=== PATIENT | female | born 1975 | race African-American/Black ===

== ENCOUNTER 2021-06-26 22:29 | Emergency (ER) | payer BC ==
[~2021-06-26] VITALS: Ht 170.2 cm; Wt 81.0 kg
[2021-06-26] MEDS ORDERED: OFLO5DRO4 LEFT EAR (22:47)
[2021-06-26] MEDS ORDERED: IBUP-2029 MT (22:47)
[2021-06-26 23:00] VITALS: BP 126/87
[2021-06-26] MEDS ORDERED: KETOROLAC 60MG/2ML VIAL IM ONE (23:00)
== END 2021-06-26 23:07 | disposition home or self-care (01) ==
LOC: ER 22:29
DX: H72.92 Unspecified perforation of tympanic membrane, left ear (principal); Z98.84 Bariatric surgery status; Z90.710 Acquired absence of both cervix and uterus; Z88.3 Allergy status to other anti-infective agents; Z88.0 Allergy status to penicillin
CPT/HCPCS: 81025; 96372; 99283; J1885

== ENCOUNTER 2023-02-06 02:46 | Emergency (ER) | payer SELFPAY ==
[~2023-02-06] VITALS: Ht 170.2 cm; Wt 73.0 kg
[~2023-02-06 02:46] MED LIST: IBUP-2029 MT; OFLO5DRO4 LEFT EAR
[2023-02-06 02:54] VITALS: BP 121/85; PULSE 85; RESP 16; TEMP 98.7; O2SAT 100
[2023-02-06] MEDS ORDERED: IOHEXOL-300 100 ML BOTTLE ONE (19:27)
== END 2023-02-06 03:26 | disposition left against medical advice (07) ==
LOC: ER 02:46
DX: R11.2 Nausea with vomiting, unspecified (principal); Z53.21 Procedure and treatment not carried out due to patient leaving prior to being seen by health care provider
CPT/HCPCS: 99281; Q9967

== ENCOUNTER 2023-02-06 04:47 | Inpatient (IN) | payer MEDICAID ==
[~2023-02-06] VITALS: Ht 165.1 cm; Wt 89.4 kg
[2023-02-06 05:33] LABS: CLARITY URINE CLEAR (CLEAR); COLOR URINE YELLOW (YELLOW); GLUCOSE URINE NEGATIVE (NEGATIVE); KETONES URINE NEGATIVE (NEGATIVE); LEUKOCYTE ESTERASE URINE NEGATIVE (NEGATIVE); NITRITE URINE NEGATIVE (NEGATIVE); OCCULT BLOOD URINE NEGATIVE (NEGATIVE); PH URINE >=9.0 (4.5-8.0); PROTEIN URINE NEGATIVE (NEGATIVE); SPECIFIC GRAVITY URINE 1.007 (1.005-1.030); UROBILINOGEN URINE 0.2 E.U./dL (0.2-1.0)
[2023-02-06 05:47] LABS: BASOPHILS % 0.6 % (0.0-2.0); EOSINOPHILS % 1.2 % (0.0-5.0); HEMATOCRIT. 35.2 % (36.0-48.0); HEMOGLOBIN. 11.6 g/dL (12.0-16.0); LYMPHOCYTES % 37.5 % (20.0-50.0); MEAN CORPUSCULAR HEMOGLOBIN 29.1 pg (28.0-32.0); MEAN CORPUSCULAR HGB CONC 32.9 g/dL (31.0-37.0); MEAN CORPUSCULAR VOLUME 88.7 fL (81.0-99.0); MEAN PLATELET VOLUME 7.6 fl (7.4-10.4); MONOCYTES % 7.8 % (2.0-8.0); NEUTROPHILS % 52.9 % (40.0-76.0); PLATELET 300 x1000/uL (130-400); RED BLOOD CELL COUNT 3.97 mill/uL (4.2-5.4); RED CELL DISTRIBUTION WIDTH 14.2 % (11.6-14.6); WHITE BLOOD COUNT 5.7 x1000/uL (4.5-11.0)
[2023-02-06 05:49] LABS: CHLORIDE 109 mEq/L (98-107); INDEX HEMOLYSI 1 (1-3); INDEX ICTERIC 1 (1-4); INDEX LIPEMIC 1 (1-3); POTASSIUM 3.2 mEq/L (3.5-5.1); SODIUM 137 mEq/L (136-145)
[2023-02-06 05:58] LABS: ALANINE AMINOTRANSFERASE 40 IU/L (13-61); ALBUMIN 3.3 g/dL (3.4-5.0); ASPARTATE AMINOTRANSFERASE 33 IU/L (15-37); BILIRUBIN TOTAL 0.5 mg/dL (0.1-1.0); CALCIUM 8.6 mg/dL (8.5-10.1); CARBON DIOXIDE 29 mEq/L (21-32); CREATININE 0.7 mg/dL (0.6-1.3); GLUCOSE 87 mg/dL (70-105); UREA NITROGEN BLOOD 7 mg/dL (7-21)
[2023-02-06] MEDS ORDERED: MORPHINE SULFATE 4 MG/ML CPJ (NOT FOR IM USE) IV STA (06:22)
[2023-02-06] MEDS ORDERED: ONDANSETRON HCL 4MG/2ML INJ IV STA (06:22)
[2023-02-06 06:58] LABS: HCG SCREEN NEGATIVE
[2023-02-06] MEDS ORDERED: SODIUM CHLORIDE 0.9% 1,000 ML IV ONE (09:15)
[2023-02-06] MEDS ORDERED: MORPHINE SULFATE 4 MG/ML CPJ (NOT FOR IM USE) IV ONE (09:15)
[2023-02-06] MEDS ORDERED: ACETAMINOPHEN 325MG TABLET PO PRN ×2 (10:30)
[2023-02-06] MEDS ORDERED: IPRATROPIUM/ALBUTEROL 0.5-3(2.5)MG/3ML NEB HHN PRN (10:30)
[2023-02-06] MEDS ORDERED: CLONIDINE 0.1MG TABLET PO PRN (10:30)
[2023-02-06] MEDS ORDERED: MAGNESIUM/ALUMINUM HYDROXIDE/SIMETHICONE 30ML UDC PO PRN (10:30)
[2023-02-06] MEDS ORDERED: GUAIFENESIN 200MG/10ML SUGAR FREE UDC PO PRN (10:30)
[2023-02-06] MEDS ORDERED: ENOXAPARIN 40MG/0.4ML SYR SUBCUT SCH (10:53)
[2023-02-06] MEDS ORDERED: NALOXONE HCL 0.4MG/ML VIAL IV PRN (11:00)
[2023-02-06] MEDS: PANTOPRAZOLE SODIUM 40 MG/VIAL IV SCH (11:12)
[2023-02-06 11:27] LABS: PROTHROMBIN TIME 10.8 sec (9.6-11.0)
[2023-02-06] MEDS ORDERED: MVI, ADULT NO.1 10 ML, FOLIC ACID 1 MG, THIAMINE HCL 100 MG in SODIUM CHLORIDE 0.9% 1,0... IV NR ×4 (11:30)
[2023-02-06] MEDS ORDERED: POTASSIUM CHLORIDE INJ 40 MEQ in DEXT 5% WATER 250 ML IV NR (11:30)
[2023-02-06 11:39] LABS: INDEX HEMOLYSI 1 (1-3); INDEX ICTERIC 1 (1-4); INDEX LIPEMIC 1 (1-3)
[2023-02-06 11:43] LABS: IRON 100 ug/dL (50-175); TOTAL IRON BINDING CAPACITY 234 ug/dL (250-450)
[2023-02-06 11:52] LABS: T4 FREE 1.06 ng/dL (0.76-1.46); THYROID STIMULATING HORMONE 3.2 uIU/mL (0.36-3.74)
[2023-02-06] MEDS ORDERED: DEXT 5%/0.45% NACL 500ML 500 ML IV SCH (12:45)
[2023-02-06] MEDS ORDERED: DIATR MEGLU/DIATRIZOATE SOLN 30ML PO NR (13:15)
[2023-02-06 14:18] LABS: FERRITIN 50 ng/mL (10-291)
[2023-02-06 17:25] LABS: HEMATOCRIT 36.4 % (36.0-48.0)
[2023-02-06 17:30] VITALS: BP 116/82; PULSE 53; RESP 20; TEMP 98.2
[2023-02-06 17:47] LABS: TROPONIN I HIGH SENSITIVITY 27 ng/L (<54)
[2023-02-06] MEDS: ONDANSETRON HCL 4MG/2ML INJ IV PRN ×2 (18:10→22:18)
[2023-02-06 18:56] LABS: INDEX HEMOLYSI 1 (1-3)
[2023-02-06 19:26] LABS: VITAMIN B12 SERUM 611 pg/mL (211-911)
[2023-02-06 19:42] LABS: FOLIC ACID (FOLATE) SERUM > 20.00 ng/mL (>5.38)
[2023-02-06 20:00] VITALS: BP 125/74; PULSE 47; RESP 17; TEMP 97.7
[2023-02-06] MEDS: HYDROCODONE/ACETAMINOPHEN 5/325MG TABLET PO PRN (20:16)
[2023-02-07] VITALS: BP 101/68; PULSE 48; RESP 17; TEMP 98.1
[2023-02-07 01:06] LABS: TROPONIN I HIGH SENSITIVITY 26 ng/L (<54)
[2023-02-07 04:00] VITALS: BP 98/61; PULSE 55; RESP 16; TEMP 96.4
[2023-02-07] MEDS: ONDANSETRON HCL 4MG/2ML INJ IV PRN ×3 (04:53→20:58)
[2023-02-07 07:28] LABS: BASOPHILS % 0.5 % (0.0-2.0); EOSINOPHILS % 1.3 % (0.0-5.0); HEMOGLOBIN. 11.1 g/dL (12.0-16.0); LYMPHOCYTES % 41.5 % (20.0-50.0); MEAN CORPUSCULAR HEMOGLOBIN 30.2 pg (28.0-32.0); MEAN CORPUSCULAR HGB CONC 33.8 g/dL (31.0-37.0); MEAN CORPUSCULAR VOLUME 89.3 fL (81.0-99.0); MEAN PLATELET VOLUME 7.8 fl (7.4-10.4); MONOCYTES % 7.6 % (2.0-8.0); NEUTROPHILS % 49.1 % (40.0-76.0); PLATELET 272 x1000/uL (130-400); RED CELL DISTRIBUTION WIDTH 14.4 % (11.6-14.6); WHITE BLOOD COUNT 5.4 x1000/uL (4.5-11.0)
[2023-02-07 07:49] LABS: CHLORIDE 106 mEq/L (98-107); INDEX HEMOLYSI 1 (1-3); INDEX ICTERIC 1 (1-4); INDEX LIPEMIC 1 (1-3); POTASSIUM 3.7 mEq/L (3.5-5.1); SODIUM 136 mEq/L (136-145)
[2023-02-07 07:59] LABS: ALANINE AMINOTRANSFERASE 29 IU/L (13-61); ALBUMIN 2.9 g/dL (3.4-5.0); ASPARTATE AMINOTRANSFERASE 21 IU/L (15-37); BILIRUBIN DIRECT 0.1 mg/dL (0.0-0.2); BILIRUBIN TOTAL 0.5 mg/dL (0.1-1.0); CALCIUM 8.6 mg/dL (8.5-10.1); CARBON DIOXIDE 26 mEq/L (21-32); CREATININE 0.7 mg/dL (0.6-1.3); GLUCOSE 88 mg/dL (70-105); PROTEIN TOTAL 6.1 g/dL (6.0-8.3); UREA NITROGEN BLOOD 6 mg/dL (7-21)
[2023-02-07 08:21] VITALS: BP 104/78; PULSE 60; RESP 18; TEMP 98.2
[2023-02-07] MEDS: DEXT 5%/0.45% NACL 1000ML 1,000 ML IV SCH ×2 (08:50→22:10)
[2023-02-07] MEDS: DOCUSATE SODIUM 100MG CAPSULE PO SCH ×2 (09:22→17:14)
[2023-02-07] MEDS: HYDROCODONE/ACETAMINOPHEN 5/325MG TABLET PO PRN ×2 (09:22→20:59)
[2023-02-07] MEDS: PANTOPRAZOLE SODIUM 40 MG/VIAL IV SCH (09:22)
[2023-02-07] MEDS ORDERED: POLYETHYLENE GLYCOL 3350 (17GM) 1 DOSE PACK PO NR (11:00)
[2023-02-07 12:53] VITALS: BP 103/50; PULSE 50; RESP 18; TEMP 98
[2023-02-07 14:00] VITALS: BP 101/65; PULSE 52; RESP 18; TEMP 98
[2023-02-07 14:53] LABS: *AMPHETAMINES SCREEN URINE NEGATIVE (NEGATIVE); *BARBITURATES SCREEN URINE NEGATIVE (NEGATIVE); *BENZODIAZEPINES SCREEN URINE NEGATIVE (NEGATIVE); *COCAINE SCREEN URINE NEGATIVE (NEGATIVE); CANNABINOID URINE SCREEN NEGATIVE (NEGATIVE); ECSTASY MDMA SCREEN URINE NEGATIVE (NEGATIVE); OPIATES URINE SCREEN NEGATIVE (NEGATIVE); PHENCYCLIDINE URINE SCREEN NEGATIVE (NEGATIVE)
[2023-02-07 16:26] VITALS: BP 101/56; PULSE 52; RESP 18; TEMP 98
[2023-02-08 08:00] VITALS: BP 110/71; PULSE 57; RESP 20; TEMP 96.6
[2023-02-08] MEDS: DOCUSATE SODIUM 100MG CAPSULE PO SCH (09:00)
[2023-02-08] MEDS: PANTOPRAZOLE SODIUM 40 MG/VIAL IV SCH (09:36)
[2023-02-08 10:48] LABS: BASOPHILS % 0.3 % (0.0-2.0); EOSINOPHILS % 1.5 % (0.0-5.0); HEMATOCRIT. 33.9 % (36.0-48.0); HEMOGLOBIN. 11.4 g/dL (12.0-16.0); LYMPHOCYTES % 45.1 % (20.0-50.0); MEAN CORPUSCULAR HGB CONC 33.5 g/dL (31.0-37.0); MEAN CORPUSCULAR VOLUME 89.4 fL (81.0-99.0); MEAN PLATELET VOLUME 7.9 fl (7.4-10.4); NEUTROPHILS % 46.1 % (40.0-76.0); PLATELET 292 x1000/uL (130-400); RED BLOOD CELL COUNT 3.79 mill/uL (4.2-5.4); RED CELL DISTRIBUTION WIDTH 14.3 % (11.6-14.6); WHITE BLOOD COUNT 5.1 x1000/uL (4.5-11.0)
[2023-02-08 10:56] LABS: PROTHROMBIN TIME 10.9 sec (9.6-11.0)
[2023-02-08 12:00] VITALS: BP 102/71; PULSE 54; RESP 16; TEMP 97.5
[2023-02-08 12:10] LABS: CHLORIDE 105 mEq/L (98-107); INDEX HEMOLYSI 1 (1-3); INDEX ICTERIC 1 (1-4); INDEX LIPEMIC 1 (1-3); POTASSIUM 3.1 mEq/L (3.5-5.1); SODIUM 139 mEq/L (136-145)
[2023-02-08 12:19] LABS: CALCIUM 8.8 mg/dL (8.5-10.1); CARBON DIOXIDE 29 mEq/L (21-32); CREATININE 0.8 mg/dL (0.6-1.3); GLUCOSE 88 mg/dL (70-105); UREA NITROGEN BLOOD 4 mg/dL (7-21)
[2023-02-08] MEDS ORDERED: PROPOFOL 200MG/20ML VIAL IV ONE (13:32)
[2023-02-08] MEDS ORDERED: MIDAZOLAM HCL 2 MG/2 ML VIAL ONE (13:32)
[2023-02-08] MEDS ORDERED: ONDANSETRON HCL 4MG/2ML INJ ONE (13:32)
[2023-02-08] MEDS ORDERED: DEXAMETHASONE 4MG/ML 1ML VIAL ONE (13:33)
[2023-02-08 16:00] VITALS: BP 101/60; PULSE 60; RESP 19; TEMP 96.7
[2023-02-08] MEDS ORDERED: KCL 20MEQ/100ML PREMIX 100 ML IV SCH (16:30)
[2023-02-08 16:38] VITALS: BP 107/71; PULSE 54; TEMP 97.5; O2SAT 100
== END 2023-02-08 17:02 | disposition home or self-care (01) | DRG 241 ==
LOC: ER 04:47 → 6WST 09:12 → EDBEDREQ 09:14 → EDBEDREQTM 09:14
PROVIDERS: ADMIT Internal Medicine; ATTEND Internal Medicine
PROC: 0DB78ZX Excision of Stomach, Pylorus, Via Natural or Artificial Opening Endoscopic, Diagnostic (ICD-10-PCS; principal; 2023-02-08)
DX: K29.71 Gastritis, unspecified, with bleeding (principal); A08.4 Viral intestinal infection, unspecified; K22.6 Gastro-esophageal laceration-hemorrhage syndrome; K29.60 Other gastritis without bleeding; E87.6 Hypokalemia; D64.9 Anemia, unspecified; K59.00 Constipation, unspecified; Z88.0 Allergy status to penicillin; Z90.710 Acquired absence of both cervix and uterus; Z91.148 Patient's other noncompliance with medication regimen for other reason; Z98.891 History of uterine scar from previous surgery; Z88.1 Allergy status to other antibiotic agents; Z98.84 Bariatric surgery status; Z79.899 Other long term (current) drug therapy
CPT/HCPCS: 36415; 71045; 74176; 74177; 76536; 80048; 80053; 80061; 80076; 80305; 81003; 82607; 82728; 82746; 82962; 83540; 83550; 84439; 84443; 84484; 84703; 85014; 85018; 85025; 85044; 86677; 88305; 88312; 88313; 93970; 97162; 99285; C9113; J1100; J1650; J2250; J2270; J2405; J2704; J3411; J3480; J3490; J7030; J7060; Q9963